=== PATIENT | female | born 1995 | race Hispanic/Latino ===

== ENCOUNTER 2016-11-23 03:16 | Observation (INO) | payer OTHER ==
[2016-11-23 03:24] VITALS: BMI 20.7
[2016-11-23] MEDS ORDERED: Sodium Chloride 0.9% 1,000 ML IV STA (03:32)
--- NOTE | 2016-11-23 03:43 | ED PDOC ---
Arrival/HPI - General Chief Complaint: Abdominal Pain Time Seen by Provider: 11/23/16 03:21 Historian: Patient - History of Present Illness Narrative History of Present Illness (Text): 11/23/16 03:42 Radha Cyr is a 20 year old female, whose past medical history includes seizure disorder, depression, and multiple UTIs, who presents to the emergency department complaining of lower abdominal pain radiating to right groin tonight. Patient reports associated nausea and vomiting. Patient states her last normal menstrual period was 1 week ago. Patient notes a few days prior she had malodorous urine and urinary frequency, for which she took [id number] UTI medication. The patient denies any fever, chills, chest pain, shortness of breath, diarrhea, back pain, neck pain, headache, dizziness, or any other complaints. Time/Duration: Other (tonight) Symptom Onset: Gradual Symptom Course: Unchanged Activities at Onset: Rest, Light Context: Home Past Medical History - Provider Review Nursing Documentation Reviewed: Yes - Infectious Disease Hx of Infectious Diseases: None - Cardiac Hx Cardiac Disorders: No - Pulmonary Hx Respiratory Disorders: No - Neurological Hx Neurological Disorder: Yes Hx Seizures: Yes - HEENT Hx HEENT Disorder: No - Renal Hx Renal Disorder: No - Endocrine/Metabolic Hx Endocrine Disorders: No - Hematological/Oncological Hx Blood Disorders: No - Integumentary Hx Dermatological Disorder: No - Musculoskeletal/Rheumatological Hx Musculoskeletal Disorders: Yes Hx Back Pain: Yes Hx Falls: Yes - Gastrointestinal Hx Gastrointestinal Disorders: No - Genitourinary/Gynecological Hx Genitourinary Disorders: Yes Hx Urinary Tract Infection: Yes (multiple) - Psychiatric Hx Psychophysiologic Disorder: Yes Hx Anxiety: Yes Hx Depression: Yes Hx Substance Use: No - Surgical History Hx Tonsillectomy: Yes - Anesthesia Hx Anesthesia: Yes Hx Anesthesia Reactions: No Hx Malignant Hyperthermia: No Family/Social History - Physician Review Nursing Documentation Reviewed: Yes Family/Social History: No Known Family HX Smoking Status: Never Smoked Hx Alcohol Use: No Hx Substance Use: No Allergies/Home Meds Allergies/Adverse Reactions: Allergies bupropion HCl [From Wellbutrin] Allergy (Verified 05/31/16 20:47) .seizure Review of Systems - Physician Review All systems were reviewed & negative as marked: Yes - Review of Systems Constitutional: Normal. absent: Fevers Eyes: Normal ENT: Normal Respiratory: Normal. absent: SOB, Cough Cardiovascular: Normal. absent: Chest Pain Gastrointestinal: Abdominal Pain, Nausea, Vomiting. absent: Diarrhea Genitourinary Female: Dysuria, Frequency. absent: Hematuria, Urine Output Changes Musculoskeletal: Normal. absent: Back Pain, Neck Pain Skin: Normal. absent: Rash Neurological: Normal. absent: Headache, Dizziness Endocrine: Normal Hemo/Lymphatic: Normal Psychiatric: Normal Physical Exam Vital Signs Reviewed: Yes Vital Signs Temp Pulse Resp BP Pulse Ox 11/23/16 03:27 98.2 F 82 16 124/89 99 Temperature: Afebrile Blood Pressure: Normal Pulse: Regular Respiratory Rate: Normal Appearance: Positive for: Well-Appearing, Non-Toxic, Comfortable Pain Distress: None Mental Status: Positive for: Alert and Oriented X 3 - Systems Exam Head: Present: Atraumatic, Normocephalic Pupils: Present: PERRL Extroacular Muscles: Present: EOMI Conjunctiva: Present: Normal Mouth: Present: Moist Mucous Membranes Neck: Present: Normal Range of Motion Respiratory/Chest: Present: Clear to Auscultation, Good Air Exchange. No: Respiratory Distress, Accessory Muscle Use Cardiovascular: Present: Regular Rate and Rhythm, Normal S1, S2. No: Murmurs Abdomen: Present: Normal Bowel Sounds. No: Tenderness, Distention, Peritoneal Signs Back: Present: Normal Inspection Upper Extremity: Present: Normal Inspection. No: Cyanosis, Edema Lower Extremity: Present: Normal Inspection. No: Edema Neurological: Present: GCS=15, CN II-XII Intact, Speech Normal Skin: Present: Warm, Dry, Normal Color. No: Rashes Psychiatric: Present: Alert, Oriented x 3, Normal Insight, Normal Concentration Medical Decision Making ED Course and Treatment: 11/23/16 03:42 Impression: 20 year old female complaining of lower abdominal pain, nausea, and vomiting tonight. Differential Diagnosis included but are not limited to: appendicitis vs. gastritis vs. UTI Plan: -- Labs, lipase -- Urinalysis -- IV fluids -- Reassess and disposition Prior Visits: Notes and results from previous visits were reviewed. Progress Notes: 11/23/16 04:15 Reviewed labs, WBC: 19.1. CT Abdomen and Pelvis ordered. 11/23/16 05:56 Reviewed radiology, CT Abdomen and Pelvis shows: Appendicitis as above. No perforation or abscess. Appendix is retrocecal. There is right ovarian cyst. Remainder as above. Paged surgeon correction worker. Vidya Bates ordered. 11/23/16 06:[address] Cazares, surgeon, who is aware and agrees with plan. Requests pt go to hospitalist service and he be placed on consult. Paged surgical nurse correction worker. 11/23/16 06:[address] Charles, surgical nurse, who is aware and agrees with plan. 11/23/16 06:21 Case discussed with house physician, who is aware and accepts pt in to hospitalist service. Pt will be admitted to [facility] for appendicitis. - Lab Interpretations Lab Results: 11/23/16 03:39 11/23/16 03:39 Lab Results 11/23/16 03:39: Sodium 140, Potassium 4.3, Chloride 101, Carbon Dioxide 27, Anion Gap 16, BUN 16, Creatinine 0.8, Est GFR ( Amer) > 60, Est GFR (Non- Af Amer) > 60, Random Glucose 84, Calcium 9.6, Total Bilirubin 0.7, AST 39, ALT 31, Alkaline Phosphatase 35 L, Total Protein 7.9, Albumin 4.4, Globulin 3.4, Albumin/Globulin Ratio 1.3, Lipase 94 11/23/16 03:39: Urine Color Yellow, Urine Appearance Clear, Urine pH 6.0, Ur Specific [place] 1.025, Urine Protein Negative, Urine Glucose (UA) Negative, Urine Ketones Negative, Urine Blood Negative, Urine Nitrate Negative, Urine Bilirubin Negative, Urine Urobilinogen 0.2, Ur Leukocyte Esterase Negative, Urine HCG, Qual Negative 11/23/16 03:39: WBC 19.1 H D, RBC 3.98, Hgb 11.8 L, Hct 34.6 L, MCV 86.9, MCH 29.6, MCHC 34.1, RDW 12.7, Plt Count 296, MPV 10.4 I have reviewed the lab results: Yes - RAD Interpretation Narrative RAD Interpretations (Text): CT Abdomen and Pelvis shows: The appendix is well visualized and is enlarged, measuring 9 mm, upper limits normal 6 mm. There is wall thickening and periappendiceal stranding. There is a small appendicolith. There is no pneumoperitoneum or abscess. There is no bowel obstruction. No acute solid organ pathology. There is a 32 x 20 mm right adnexal cyst, likely representing a functional ovarian cyst IMPRESSION: Appendicitis as above. No perforation or abscess. Appendix is retrocecal. There is right ovarian cyst. Remainder as above. Radiology Orders: 11/23/16 04:17 ABD & PELVIS IV CONTRAST ONLY [CT] Stat Solar Resource Assessor: Radiologist - Medication Orders Current Medication Orders: Metronidazole (Flagyl) 500 mg in 100 mls @ 100 mls/hr IVPB STAT STA PRN Reason: Protocol Stop: 11/23/16 07:00 Discontinued Medications Sodium Chloride (Sodium Chloride 0.9%) 1,000 mls @ 999 mls/hr IV .Q1H1M STA Stop: 11/23/16 04:32 Last Admin: 11/23/16 03:51 Dose: 999 mls/hr Ceftriaxone Sodium (Rocephin 1 Gram Ivpb) 1 gm in 100 mls @ 200 mls/hr IV ONCE STA PRN Reason: Protocol Stop: 11/23/16 06:29 Iohexol (Omnipaque 350 100 Ml) Confirm Administered Dose 350 mg .ROUTE .STK-MED ONE Stop: 11/23/16 04:57 Ketorolac Tromethamine (Toradol) 30 mg IVP ONCE ONE Stop: 11/23/16 04:18 Last Admin: 11/23/16 05:31 Dose: 30 mg - [place] Statement The provider has reviewed the documentation as recorded by the Isidoro Lopez Provider Attestation: All medical record entries made by the Isidoro were at my direction and personally dictated by me. I have reviewed the chart and agree that the record accurately reflects my personal performance of the history, physical exam, medical decision making, and the department course for this patient. I have also personally directed, reviewed, and agree with the discharge instructions and disposition. Disposition/Present on Arrival - Present on Arrival Any Indicators Present on Arrival: No History of DVT/PE: No History of Uncontrolled Diabetes: No Urinary Catheter: No History of Decub. Ulcer: No History Surgical Site Infection Following: None - Disposition Have Diagnosis and Disposition been Completed?: Yes Diagnosis: Appendicitis Disposition: HOSPITALIZED Disposition Time: 06:29 Patient Plan: Admission Patient Problems: Current Active Problems Problem Status Onset Appendicitis Acute Condition: STABLE
[2016-11-23 04:03] LABS: HEMATOCRIT 34.6 % (36.0-48.0); MEAN CELL VOLUME 86.9 fL (80.0-105.0); MEAN CORPUSCULAR HEMOGLOBIN 29.6 pg (25.0-35.0); MEAN CORPUSCULAR HGB CONC 34.1 g/dl (31.0-37.0); MEAN PLATELET VOLUME 10.4 fl (7.0-11.0); RED CELL DISTRIBUTION WIDTH 12.7 % (11.5-14.5); URINE BILIRUBIN NEGATIVE (NEGATIVE); URINE BLOOD NEGATIVE (NEGATIVE); URINE GLUCOSE (UA) NEGATIVE (NEGATIVE); URINE KETONE NEGATIVE (NEGATIVE); URINE LEUKOCYTE ESTERASE NEGATIVE Leu/uL (NEGATIVE); URINE PROTEIN NEGATIVE mg/dL (<30 mg/dL); URINE UROBILINOGEN 0.2 E.U./dL (<1 E.U./dL); WHITE BLOOD COUNT 19.1 10^3/ul (4.5-11.0)
[2016-11-23 04:05] LABS: ALB/GLOB RATIO 1.3 (1.1-1.8); ALKALINE PHOSPHATASE 35 U/L (38-133); ALT/SGPT 31 U/L (7-56); AST/SGOT 39 U/L (15-39); BILIRUBIN,TOTAL 0.7 mg/dL (0.2-1.3); BLOOD UREA NITROGEN 16 mg/dL (7-21); CALCIUM 9.6 mg/dL (8.4-10.5); CARBON DIOXIDE 27 mmol/L (21-33); CHLORIDE 101 mmol/L (98-107); GFR AFRICAN-AMERICAN > 60; GLUCOSE,RANDOM 84 mg/dL (70-110); LIPASE 94 U/L (23-300); POTASSIUM 4.3 mmol/L (3.6-5.0); SODIUM 140 mmol/L (132-148); TOTAL PROTEIN 7.9 g/dL (5.8-8.3)
[2016-11-23 04:13] LABS: URINE APPEARANCE CLEAR (CLEAR); URINE COLOR YELLOW (YELLOW)
[2016-11-23] MEDS ORDERED: Iohexol 350 MG/100 ML VIAL ONE (04:56)
[2016-11-23] MEDS ORDERED: cefTRIAXone 1 gm 1 GM/100 ML BAG IV STA (06:00)
[2016-11-23] MEDS ORDERED: metroNIDAZOLE IV 500 mg/100 ml 500 MG/100 ML BAG IVPB STA (06:01)
[2016-11-23] MEDS ORDERED: HYDROmorphone 0.5 mg/0.5 ml ISec IVP PRN (06:36)
--- NOTE | 2016-11-23 06:40 | CP.PCM.CON ---
<Lino Macedo - Last Filed: 11/23/16 06:43> History of Present Illness - History of Present Illness History of Present Illness: General Surgery: Dr Louise Pt is a 20F with PMH of poorly controlled seizure disorder, on Keppra 750mg BID , last known seizure in . Pt presents with suprapubic/RLQ pain which began at 10PM last night shortly after dinner. Pt reports the pain was 8/10 and consistent, located in the RLQ. PT initially felt it was just gas pains/cramping until about 11PM when she began to have multiple episodes of emesis. After several hours she decided to present to ED because the pain would not subside. She has associated N/V, subjective fevers, and constipation. Denies ever having symptoms like this before. Denies diarrhea, dysuria, abnormal menstrual bleeding, headache, sob or chest pain. CT scan confirms dilated retro-cecal appendix with appendicolith Has not yet had seizure meds today. PMH: as above PSH: tonsillectomy Review of Systems - Review of Systems All systems: reviewed and no additional remarkable complaints except (as per hpi ) Past Patient History - Infectious Disease Hx of Infectious Diseases: None - Past Social History Smoking Status: Never Smoked - CARDIAC Hx Cardiac Disorders: No - PULMONARY Hx Respiratory Disorders: No - NEUROLOGICAL Hx Neurological Disorder: Yes Hx Seizures: Yes - HEENT Hx HEENT Problems: No - RENAL Hx Chronic Kidney Disease: No - ENDOCRINE/METABOLIC Hx Endocrine Disorders: No - HEMATOLOGICAL/ONCOLOGICAL Hx Blood Disorders: No - INTEGUMENTARY Hx Dermatological Problems: No - MUSCULOSKELETAL/RHEUMATOLOGICAL Hx Musculoskeletal Disorders: Yes Hx Back Pain: Yes Hx Falls: Yes - GASTROINTESTINAL Hx Gastrointestinal Disorders: No - GENITOURINARY/GYNECOLOGICAL Hx Genitourinary Disorders: Yes Hx Urinary Tract Infection: Yes (multiple) - PSYCHIATRIC Hx Psychophysiologic Disorder: Yes Hx Anxiety: Yes Hx Depression: Yes Hx Substance Use: No - SURGICAL HISTORY Hx Tonsillectomy: Yes - ANESTHESIA Hx Anesthesia: Yes Hx Anesthesia Reactions: No Hx Malignant Hyperthermia: No Meds Allergies/Adverse Reactions: Allergies Allergy/AdvReac Type Severity Reaction Status Date / Time bupropion HCl Allergy .seizure Verified 05/31/16 20:47 [From Wellbutrin] - Medications Medications: Current Medications Hydromorphone HCl (Dilaudid) 0.5 mg IVP Q4H PRN PRN Reason: Pain, Mild (1-3) Metronidazole (Flagyl) 500 mg in 100 mls @ 100 mls/hr IVPB STAT STA PRN Reason: Protocol Stop: 11/23/16 07:00 Metronidazole (Flagyl) 500 mg in 100 mls @ 100 mls/hr IVPB Q8 COLT PRN Reason: Protocol Ceftriaxone Sodium (Rocephin 1 Gram Ivpb) 1 gm in 100 mls @ 100 mls/hr IVPB DAILY COLT PRN Reason: Protocol Sodium Chloride (Sodium Chloride 0.9%) 1,000 mls @ 100 mls/hr IV .Q10H COLT Levetiracetam (Keppra) 750 mg PO BID COLT Physical Exam - Constitutional Appears: Non-toxic, No Acute Distress - Head Exam Head Exam: NORMOCEPHALIC - Eye Exam Eye Exam: absent: Scleral icterus - ENT Exam ENT Exam: Mucous Membranes Dry - Respiratory Exam Respiratory Exam: absent: Accessory Muscle Use, Respiratory Distress - Cardiovascular Exam Cardiovascular Exam: REGULAR RHYTHM. absent: Tachycardia - GI/Abdominal Exam GI & Abdominal Exam: Soft, Tenderness (suprapubic and RLQ). absent: Distended, Firm, Guarding, Hernia, Mass, Rebound, Rigid Additional comments: - rebound -psoas -rovsings of note pt had pain medication administered right before physical exam - Extremities Exam Extremities exam: Negative for: pedal edema - Neurological Exam Neurological exam: Alert, Oriented x3 - Psychiatric Exam Psychiatric exam: Normal Affect, Normal Mood - Skin Skin Exam: Normal Color Results - Vital Signs Recent Vital Signs: Last Vital Signs Temp 98.2 F 11/23/16 03:27 Pulse 86 11/23/16 06:37 Resp 18 11/23/16 06:37 BP 106/67 11/23/16 06:37 Pulse Ox 100 11/23/16 06:37 - Labs Result Diagrams: 11/23/16 03:39 11/23/16 03:39 Labs: Laboratory Results - last 24 hr 11/23/16 11/23/16 11/23/16 03:39 03:39 03:39 WBC 19.1 H D RBC 3.98 Hgb 11.8 L Hct 34.6 L MCV 86.9 MCH 29.6 MCHC 34.1 RDW 12.7 Plt Count 296 MPV 10.4 Sodium 140 Potassium 4.3 Chloride 101 Carbon Dioxide 27 Anion Gap 16 BUN 16 Creatinine 0.8 Est GFR ( Amer) > 60 Est GFR (Non-Af Amer) > 60 Random Glucose 84 Calcium 9.6 Total Bilirubin 0.7 AST 39 ALT 31 Alkaline Phosphatase 35 L Total Protein 7.9 Albumin 4.4 Globulin 3.4 Albumin/Globulin Ratio 1.3 Lipase 94 Urine Color Yellow Urine Appearance Clear Urine pH 6.0 Ur Specific [place] 1.025 Urine Protein Negative Urine Glucose (UA) Negative Urine Ketones Negative Urine Blood Negative Urine Nitrate Negative Urine Bilirubin Negative Urine Urobilinogen 0.2 Ur Leukocyte Esterase Negative Urine HCG, Qual Negative Assessment & Plan - Assessment and Plan (Free Text) Assessment: 20F with appendicitis Plan: NPO IV Fluids abx as ordered OR this morning for laparoscopic appendectomy d/w Dr Debora Macedo DO, PGY2 - Date & Time Date: 11/23/16 Time: 06:49 <Ramírez Cazares - Last Filed: 11/27/16 12:57> Results - Vital Signs Recent Vital Signs: Last Vital Signs Temp 99.0 F 11/24/16 06:28 Pulse 60 11/24/16 06:28 Resp 18 11/24/16 06:28 BP 113/67 11/24/16 06:28 Pulse Ox 99 11/24/16 06:28 - Labs Result Diagrams: 11/24/16 07:00 11/24/16 07:00 Assessment & Plan - Assessment and Plan (Free Text) Assessment: Patient was seen and examined by me. I agree with assessment and plan as per resident's note.
[2016-11-23] MEDS ORDERED: Sodium Chloride 0.9% 1,000 ML IV SCH (06:45)
--- NOTE | 2016-11-23 07:24 | CT ---
PROCEDURE: CT Abdomen and Pelvis with contrast HISTORY: abdominal pain COMPARISON: None. TECHNIQUE: Contrast dose: 100 cc of Omnipaque 300 Radiation dose: Total exam DLP = 227 mGy-cm. This CT exam was performed using one or more of the following dose reduction techniques: Automated exposure control, adjustment of the mA and/or kV according to patient size, and/or use of iterative reconstruction technique. FINDINGS: LOWER THORAX: Unremarkable. LIVER: Unremarkable. No gross lesion or ductal dilatation. GALLBLADDER AND BILE DUCTS: Unremarkable. PANCREAS: Unremarkable. No gross lesion or ductal dilatation. SPLEEN: Unremarkable. ADRENALS: Unremarkable. No mass. KIDNEYS AND URETERS: Unremarkable. No hydronephrosis. No solid mass. VASCULATURE: Unremarkable. No aortic aneurysm. BOWEL: Unremarkable. No obstruction. No gross mural thickening. APPENDIX: Normal appendix. PERITONEUM: Unremarkable. No free fluid. No free air. LYMPH NODES: Unremarkable. No enlarged lymph nodes. BLADDER: Unremarkable. REPRODUCTIVE: 2.8 centimeter right ovarian cyst. Minimal free fluid in cul-de-sac.. BONES: No acute fracture. OTHER FINDINGS: None. IMPRESSION: 2.8 centimeter right ovarian cyst. Minimal free fluid in cul-de-sac..
[2016-11-23] MEDS ORDERED: Propofol 10 mg/ml Inj (20 ML) ONE (07:57)
[2016-11-23] MEDS ORDERED: Midazolam 2 MG/2 ML VIAL ONE (07:57)
[2016-11-23] MEDS ORDERED: Rocuronium 10 mg/ml (5 ml) ONE (07:57)
[2016-11-23] MEDS ORDERED: Bupivacaine 0.5% Inj(30mL) ONE (08:12)
[2016-11-23] MEDS ORDERED: Morphine 2 mg/ml ISec IVP PRN (08:35)
[2016-11-23] MEDS ORDERED: Lactated Ringer's 1,000 ML IV SCH (08:35)
[2016-11-23] MEDS ORDERED: Glycopyrrolate 0.2 mg/ml (2ml vial) ONE (08:38)
[2016-11-23] MEDS ORDERED: Neostigmine Methylsulfate 3mg/3ml Syringe IV ONE (08:38)
--- NOTE | 2016-11-23 09:30 | PCM.SURG1 ---
Surgeon's Initial Post Op Note - Surgeon's Notes Surgeon: Dr. Cazares Business Integration Manager: Dr. Leos PGY1 Type of Anesthesia: General Endo Pre-Operative Diagnosis: appendicitis Operative Findings: see dictation Post-Operative Diagnosis: same Operation Performed: laparoscopic appendectomy Specimen/Specimens Removed: appendix Estimated Blood Loss: EBL {In ML}: 5 Post-Op Condition: Good Date of Surgery/Procedure: 11/23/16 Time of Surgery/Procedure: 07:45
[2016-11-23] MEDS ORDERED: Morphine 2 mg/ml ISec ONE (09:54)
--- NOTE | 2016-11-23 09:54 | CP.PCM.HP ---
History of Present Illness - History of Present Illness History of Present Illness: General Surgery: Dr Louise HPI: Pt is a 20F w/ PMHx of poorly controlled seizure disorder, on Keppra 750mg BID, last known seizure in . Pt presents w/ suprapubic/RLQ pain which began at 10PM last night shortly after dinner. Pt reports the pain was 8/10 and consistent, located in the RLQ. PT initially felt it was just gas pains/ cramping until about 11PM when she began to have multiple episodes of emesis. After several hours she decided to present to ED because the pain would not subside. She has associated N/V, subjective fevers, and constipation. Denies ever having symptoms like this before. Denies diarrhea, dysuria, abnormal menstrual bleeding, headache, sob or chest pain. CT scan confirms dilated retro-cecal appendix with appendicolith Has not yet had seizure meds today. PMH: as above PSH: tonsillectomy Present on Admission - Present on Admission Any Indicators Present on Admission: No Review of Systems - Review of Systems All systems: reviewed and no additional remarkable complaints except (see HPI) Past Patient History - Infectious Disease Hx of Infectious Diseases: None - Past Social History Smoking Status: Never Smoked - CARDIAC Hx Cardiac Disorders: No - PULMONARY Hx Respiratory Disorders: No - NEUROLOGICAL Hx Neurological Disorder: Yes Hx Seizures: Yes - HEENT Hx HEENT Problems: No - RENAL Hx Chronic Kidney Disease: No - ENDOCRINE/METABOLIC Hx Endocrine Disorders: No - HEMATOLOGICAL/ONCOLOGICAL Hx Blood Transfusions: No Hx Blood Transfusion Reaction: No - INTEGUMENTARY Hx Dermatological Problems: No - MUSCULOSKELETAL/RHEUMATOLOGICAL Hx Musculoskeletal Disorders: Yes Hx Back Pain: Yes Hx Falls: Yes - GASTROINTESTINAL Hx Gastrointestinal Disorders: No - GENITOURINARY/GYNECOLOGICAL Hx Genitourinary Disorders: Yes Hx Urinary Tract Infection: Yes (multiple) - PSYCHIATRIC Hx Psychophysiologic Disorder: Yes Hx Anxiety: Yes Hx Depression: Yes Hx Substance Use: No - SURGICAL HISTORY Hx Surgeries: Yes - ANESTHESIA Hx Anesthesia Reactions: No Hx Malignant Hyperthermia: No Meds Allergies/Adverse Reactions: Allergies Allergy/AdvReac Type Severity Reaction Status Date / Time bupropion HCl Allergy .seizure Verified 05/31/16 20:47 [From Wellbutrin] Physical Exam - Constitutional Appears: Non-toxic, No Acute Distress - Head Exam Head Exam: NORMAL INSPECTION - Eye Exam Eye Exam: Normal appearance - ENT Exam ENT Exam: Mucous Membranes Moist - Respiratory Exam Respiratory Exam: NORMAL BREATHING PATTERN. absent: Accessory Muscle Use, Respiratory Distress - Cardiovascular Exam Cardiovascular Exam: REGULAR RHYTHM. absent: Tachycardia - GI/Abdominal Exam GI & Abdominal Exam: Soft, Tenderness (suprapubic/RLQ). absent: Distended, Firm , Guarding, Hernia, Mass, Rebound, Rigid Additional comments: (-) Psoas, Rovsings sign of note pt had pain medication administered right before physical exam - Extremities Exam Extremities exam: Positive for: normal inspection. Negative for: pedal edema - Neurological Exam Neurological exam: Alert, Oriented x3 - Psychiatric Exam Psychiatric exam: Normal Affect, Normal Mood - Skin Skin Exam: Dry, Intact, Normal Color, Warm Results - Vital Signs Recent Vital Signs: Last Vital Signs Temp 98.4 F 11/23/16 09:20 Pulse 57 L 11/23/16 09:35 Resp 12 11/23/16 09:35 BP 97/61 L 11/23/16 09:35 Pulse Ox 100 11/23/16 09:35 - Labs Result Diagrams: 11/23/16 03:39 11/23/16 03:39 - Imaging and Cardiology CT scan - abdomen Status: Image reviewed by me, Report reviewed by me Assessment & Plan - Assessment and Plan (Free Text) Assessment: 20 y/o F w/ appendicitis - NPO - IV Fluids - abx as ordered - pain management - OR this morning for laparoscopic appendectomy - Discharge later this afternoon on Keflex if tolerating diet. Pt seen and discussed w/ Dr. Debora Leos DO PGY1
--- NOTE | 2016-11-23 10:18 | OP ---
PROCEDURE DATE: 11/23/2016 PREOPERATIVE DIAGNOSIS: Acute appendicitis. POSTOPERATIVE DIAGNOSIS: Acute appendicitis. PROCEDURE PERFORMED: Laparoscopic appendectomy. SURGEON: Dr. Cazares. SOA INTEGRATION ARCHITECT: Dr. Leos. ANESTHESIOLOGIST: Dr. Gramajo. ANESTHESIA: General endotracheal anesthesia. ESTIMATED BLOOD LOSS: Minimal. SPECIMEN: Acutely inflamed appendix. INDICATION: The patient is a 20-year-old female who came to the Emergency Room with complaints of ac boo onset abdominal pain starting in the periumbilical area and radiating to the right lower quadrant . The patient had a CT scan revealing presence of acute appendicitis and was scheduled for appendect jeremy. DESCRIPTION OF PROCEDURE: The patient was brought to the operating room and placed on the operating table in supine position. The patient was connected to EKG, blood pressure and pulse oximeter monito rs. The patient then underwent general endotracheal anesthesia and was prepped and draped in usual s terile fashion. Using 2 towel clips, the anterior abdominal wall was elevated and a small incision was made superior to the umbilicus. Once hemoperitoneum was obtained using the Veress needle, the 12 mm scope was plac ed via that incision, and a careful evaluation of the abdominal cavity revealed the presence of diste nded colon quite redundant going down into the pelvis. The cecum was slowly elevated. The patient w as put into the Trendelenburg position exposing the thickened appendix. A second 10 mm trocar was pl aced in the suprapubic position, and careful dissection begun by first cauterizing the mesentery of t hat appendix down to its base. Once the base of the appendix was exposed, an Endo-ANMOL stapler was pl aced via the periumbilical port and the base of the appendix was stapled and amputated. The appendix was then placed in an EndoCatch bag and removed through the periumbilical incision. The right lower quadrant was copiously irrigated and irrigant fluid was suctioned out. There was excellent hemostas is. The right ovary was visualized and noted to be normal with a small hemorrhagic cyst on one side of it. Otherwise, there were no other abnormalities noted in the abdominal cavity. Both ports were checked. There was no evidence of any bleeding around the port. Both ports were then removed after pneumoperitoneum was released. Once trocars were removed, the wounds were closed using 0 Vicryl for the fascia, 3-0 Vicryl for subcutaneous tissue and 4-0 Monocryl for skin. A sterile Dermabond dressi ng was applied to all the wounds. The patient tolerated the procedure well and there were no complic ations. The patient was awakened and transferred to recovery room for further observation. Ramírez Cazares MD cc: [id number] TT: 11/23/2016 10:17:28 mn
[2016-11-23] MEDS: cefTRIAXone 1 gm 1 GM/100 ML BAG IVPB SCH (10:37)
[2016-11-23 11:30] VITALS: RESP 18
[2016-11-23] MEDS: metroNIDAZOLE IV 500 mg/100 ml 500 MG/100 ML BAG IVPB SCH ×2 (13:35→21:47)
[2016-11-23] MEDS: HYDROmorphone 0.5 mg/0.5 ml ISec IVP PRN ×2 (13:46→19:55)
[2016-11-23] MEDS: Oxycodone/Acetaminophen 5/325 mg Tab PO PRN ×2 (15:50→23:50)
[2016-11-23] MEDS: Sodium Chloride 0.9% 1,000 ML IV SCH (19:54)
[2016-11-24] MEDS: metroNIDAZOLE IV 500 mg/100 ml 500 MG/100 ML BAG IVPB SCH (05:26)
[2016-11-24] MEDS: Sodium Chloride 0.9% 1,000 ML IV SCH (05:28)
[2016-11-24] MEDS: HYDROmorphone 0.5 mg/0.5 ml ISec IVP PRN ×2 (05:56→10:22)
[2016-11-24 07:18] VITALS: BP 113/67; PULSE 60; TEMP 99; O2SAT 99
[2016-11-24 07:50] LABS: BLOOD UREA NITROGEN 9 mg/dL (7-21); CALCIUM 8.4 mg/dL (8.4-10.5); CARBON DIOXIDE 25 mmol/L (21-33); CHLORIDE 106 mmol/L (98-107); GFR AFRICAN-AMERICAN > 60; GLUCOSE,RANDOM 89 mg/dL (70-110); POTASSIUM 4.1 mmol/L (3.6-5.0); SODIUM 138 mmol/L (132-148)
[2016-11-24 07:53] LABS: HEMATOCRIT 29.5 % (36.0-48.0); MEAN CELL VOLUME 91.3 fL (80.0-105.0); MEAN CORPUSCULAR HEMOGLOBIN 28.8 pg (25.0-35.0); MEAN CORPUSCULAR HGB CONC 31.5 g/dl (31.0-37.0); MEAN PLATELET VOLUME 10.9 fl (7.0-11.0); RED CELL DISTRIBUTION WIDTH 12.8 % (11.5-14.5); WHITE BLOOD COUNT 7.9 10^3/ul (4.5-11.0)
[2016-11-24] MEDS: cefTRIAXone 1 gm 1 GM/100 ML BAG IVPB SCH (09:20)
--- NOTE | 2016-11-24 14:35 | CP.PCM.DIS ---
Provider - Provider Date of Admission: 11/23/16 06:26 Attending physician: Ramírez Cazares MD Time Spent in preparation of Discharge (in minutes): 30 Hospital Course - Lab Results Lab Results: Micro Results 11/23/16 06:44 Blood Blood Culture - Preliminary NO GROWTH AFTER 24 HOURS Most Recent Lab Values WBC 7.9 10^3/ul (4.5-11.0) D 11/24/16 07:00 RBC 3.23 10^6/uL (3.5-6.1) L 11/24/16 07:00 Hgb 9.3 gm/dL (12.0-16.0) L 11/24/16 07:00 Hct 29.5 % (36.0-48.0) L 11/24/16 07:00 MCV 91.3 fL (80.0-105.0) 11/24/16 07:00 MCH 28.8 pg (25.0-35.0) 11/24/16 07:00 MCHC 31.5 g/dl (31.0-37.0) 11/24/16 07:00 RDW 12.8 % (11.5-14.5) 11/24/16 07:00 Plt Count 224 10^3/uL (120.0-450.0) 11/24/16 07:00 MPV 10.9 fl (7.0-11.0) 11/24/16 07:00 Sodium 138 mmol/L (132-148) 11/24/16 07:00 Potassium 4.1 mmol/L (3.6-5.0) 11/24/16 07:00 Chloride 106 mmol/L (98-107) 11/24/16 07:00 Carbon Dioxide 25 mmol/L (21-33) 11/24/16 07:00 Anion Gap 11 (10-20) 11/24/16 07:00 BUN 9 mg/dL (7-21) 11/24/16 07:00 Creatinine 0.9 mg/dL (0.5-1.4) 11/24/16 07:00 Est GFR ( Amer) > 60 11/24/16 07:00 Est GFR (Non-Af Amer) > 60 11/24/16 07:00 Random Glucose 89 mg/dL (70-110) 11/24/16 07:00 Calcium 8.4 mg/dL (8.4-10.5) 11/24/16 07:00 Total Bilirubin 0.7 mg/dL (0.2-1.3) 11/23/16 03:39 AST 39 U/L (15-39) 11/23/16 03:39 ALT 31 U/L (7-56) 11/23/16 03:39 Alkaline Phosphatase 35 U/L (38-133) L 11/23/16 03:39 Total Protein 7.9 g/dL (5.8-8.3) 11/23/16 03:39 Albumin 4.4 g/dL (3.0-4.8) 11/23/16 03:39 Globulin 3.4 gm/dL 11/23/16 03:39 Albumin/Globulin Ratio 1.3 (1.1-1.8) 11/23/16 03:39 Lipase 94 U/L (23-300) 11/23/16 03:39 Urine Color Yellow (YELLOW) 11/23/16 03:39 Urine Appearance Clear (CLEAR) 11/23/16 03:39 Urine pH 6.0 (4.7-8.0) 11/23/16 03:39 Ur Specific [place] 1.025 (1.005-1.035) 11/23/16 03:39 Urine Protein Negative mg/dL (<30 mg/dL) 11/23/16 03:39 Urine Glucose (UA) Negative mg/dL (NEGATIVE) 11/23/16 03:39 Urine Ketones Negative mg/dL (NEGATIVE) 11/23/16 03:39 Urine Blood Negative (NEGATIVE) 11/23/16 03:39 Urine Nitrate Negative (NEGATIVE) 11/23/16 03:39 Urine Bilirubin Negative (NEGATIVE) 11/23/16 03:39 Urine Urobilinogen 0.2 E.U./dL (<1 E.U./dL) 11/23/16 03:39 Ur Leukocyte Esterase Negative [place]/uL (NEGATIVE) 11/23/16 03:39 Urine HCG, Qual Negative (NEGATIVE) 11/23/16 03:39 - Hospital Course Hospital Course: Patient is a 21yo female with history of seizure disorder that presented c/o suprapubic and RLQ abdominal pain that started the evening prior to presenting to the emergency room. She reported that the pain started shortly after dinner and was an 8/10 in severity and constant. She reported that her abdominal pain was associated with nonbloody emesis and decided to the come to the hospital because the pain would not subside. She reported nausea, vomiting, subjective fevers and constipation. Denied diarrhea, dysuria, abnormal menstrual bleeding , headache, sob or chest pain. Labs in the ED, were notable for leukocytosis ( 19.1). CT scan reported dilated retro-cecal appendix with appendicolith. Patient was subsequently taken to OR for laproscopic appendectomy. She tolerated the procedure well and was able to tolerate diet and ambulate. She was subsequently discharged with instructions to follow up with Dr. Cazares in 1-2 weeks. Discharge Exam - Head Exam Head Exam: NORMAL INSPECTION - Eye Exam Eye Exam: EOMI, PERRL - ENT Exam ENT Exam: Mucous Membranes Moist - Neck Exam Neck exam: Normal Inspection - Respiratory Exam Respiratory Exam: Clear to PA & Lateral. absent: Rales, Rhonchi, Wheezes - Cardiovascular Exam Cardiovascular Exam: RRR, +S1, +S2. absent: Gallop, JVD, Rubs - GI/Abdominal Exam GI & Abdominal Exam: Soft, Tenderness. absent: Distended, Guarding, Rebound, Rigid - Neurological Exam Neurological exam: Alert, Oriented x3 - Psychiatric Exam Psychiatric exam: Normal Affect, Normal Mood - Skin Skin Exam: Dry, Intact, Normal Color, Warm Discharge Plan - Discharge Medications Prescriptions: oxyCODONE/Acetaminophen [Percocet 5/325 mg Tab] 1 ea PO Q6H PRN #30 tab PRN Reason: Pain, Moderate (4-7) - Follow Up Plan Condition: STABLE Disposition: HOME/ ROUTINE Instructions: Appendicitis (DC), Appendicitis (GEN), Laparoscopic Appendectomy (DC) Additional Instructions: - FOLLOW UP WITH DR. YOUNG IN 2 WEEKS - NO HEAVY LIFTING UNTIL CLEARED BY DR. YOUNG. - REPORT TO ER IF DEVELOPING FEVER, CHILLS, SEVERE PAIN, OR NEW ONSET OF SYMPTOMS. Referrals: Ramírez Cazares MD [Staff Provider] -
== END 2016-11-24 14:48 | disposition home or self-care (01) ==
LOC: ED 03:16 → INTOOBSV 06:26 → ERH 06:26 → 3RNO 10:27
PROVIDERS: ADMIT Internal Medicine; ATTEND General Practice
DX: K35.80 Unspecified acute appendicitis (principal); G40.909 Epilepsy, unspecified, not intractable, without status epilepticus; R35.0 Frequency of micturition; N83.201 Unspecified ovarian cyst, right side; K59.00 Constipation, unspecified; Z87.440 Personal history of urinary (tract) infections
CPT/HCPCS: 36415; 44970; 74177; 80048; 80053; 81003; 83690; 84703; 85027; 87040; 88304; 96361; 96365; 96366; 96367; 96375; 96376; 99285; G0378; J0696; J1170; J1885; J2001; J2250; J2270; J2704; J2710; J3010; J7040; Q9967

== ENCOUNTER 2016-11-25 01:07 | Emergency (ER) | payer OTHER ==
[2016-11-25 01:08] VITALS: BMI 20.7
[2016-11-25 01:16] VITALS: RESP 18; TEMP 99; O2SAT 99
--- NOTE | 2016-11-25 01:51 | ED PDOC ---
Arrival/HPI - General Chief Complaint: Syncope Time Seen by Provider: 11/25/16 01:23 Historian: Patient, Spouse - History of Present Illness Narrative History of Present Illness (Text): 11/25/16 01:52 Radha Cyr is a 21 year old female who presents to the emergency department s/p recent appendectomy, complaining of abdominal pain since surgery. Patient states she has not had a bowel movement or passed gas since the surgery. Patient took Percocet for pain for minimal relief. Also states she feels dehydrated. According to , patient experienced an episode of transient "blank stare." She has a history of partial seizure, for which she takes Keppra. Denies fever, chills, headache, dizziness, nausea, vomiting, diarrhea, urinary symptoms, or any other complaints at this time. Time/Duration: Other (since yesterday ) Symptom Onset: Gradual Symptom Course: Unchanged Severity Level: Mild Activities at Onset: Light Past Medical History - Provider Review Nursing Documentation Reviewed: Yes - Infectious Disease Hx of Infectious Diseases: None - Cardiac Hx Cardiac Disorders: No - Pulmonary Hx Respiratory Disorders: No - Neurological Hx Neurological Disorder: Yes Hx Seizures: Yes - HEENT Hx HEENT Disorder: No - Renal Hx Renal Disorder: No - Endocrine/Metabolic Hx Endocrine Disorders: No - Hematological/Oncological Hx Blood Disorders: No - Integumentary Hx Dermatological Disorder: No - Musculoskeletal/Rheumatological Hx Falls: Yes - Gastrointestinal Hx Gastrointestinal Disorders: No - Genitourinary/Gynecological Hx Genitourinary Disorders: Yes Hx Urinary Tract Infection: Yes (multiple) - Psychiatric Hx Psychophysiologic Disorder: Yes Hx Anxiety: Yes Hx Depression: Yes Hx Substance Use: No - Surgical History Hx Appendectomy: Yes - Anesthesia Hx Anesthesia: Yes Hx Anesthesia Reactions: No Hx Malignant Hyperthermia: No Family/Social History - Physician Review Nursing Documentation Reviewed: Yes Family/Social History: No Known Family HX Smoking Status: Never Smoked Hx Alcohol Use: No Hx Substance Use: No Allergies/Home Meds Allergies/Adverse Reactions: Allergies bupropion HCl [From Wellbutrin] Allergy (Verified 05/31/16 20:47) .seizure Review of Systems - Physician Review All systems were reviewed & negative as marked: Yes - Review of Systems Constitutional: Normal. absent: Fatigue, Fevers Respiratory: Normal. absent: SOB, Cough, Sputum Cardiovascular: Normal. absent: Chest Pain, Palpitations Gastrointestinal: Abdominal Pain. absent: Diarrhea, Vomiting Genitourinary Female: Normal Neurological: Other (episode of "blank Stare" ). absent: Headache, Dizziness Psychiatric: Normal Physical Exam Vital Signs Reviewed: Yes Vital Signs Temp Pulse Resp BP Pulse Ox 11/25/16 07:08 72 18 122/68 99 11/25/16 05:08 72 18 124/72 100 11/25/16 01:15 99.0 F 78 18 138/74 99 Temperature: Afebrile Blood Pressure: Normal Pulse: Regular Respiratory Rate: Normal Appearance: Positive for: Well-Appearing, Non-Toxic, Comfortable Pain Distress: None Mental Status: Positive for: Alert and Oriented X 3 - Systems Exam Head: Present: Atraumatic, Normocephalic Pupils: Present: PERRL Conjunctiva: Present: Normal Mouth: Present: Moist Mucous Membranes Respiratory/Chest: Present: Clear to Auscultation, Good Air Exchange. No: Respiratory Distress, Accessory Muscle Use Cardiovascular: Present: Regular Rate and Rhythm, Normal S1, S2. No: Murmurs Abdomen: Present: Tenderness (lower abdominal), Normal Bowel Sounds, Other (no signs of erythema at laproscopic sites and umbilicus ). No: Distention, Peritoneal Signs, Rebound, Guarding Upper Extremity: Present: Normal Inspection. No: Cyanosis, Edema Lower Extremity: Present: Normal Inspection. No: Edema Neurological: Present: GCS=15, CN II-XII Intact, Speech Normal, Motor Func Grossly Intact, Normal Sensory Function Skin: Present: Warm, Dry, Normal Color. No: Rashes Psychiatric: Present: Alert, Oriented x 3, Normal Insight, Normal Concentration Medical Decision Making ED Course and Treatment: 11/25/16 02:01 Impression: A 21 year old female who presents to the emergency department complaining of diffuse abdominal pain s/p recent appendectomy. Patient also had a transient episode of "blank stare". Plan: -- Labs -- IV fluids -- Toradol -- Urinalysis -- Reassess and disposition Progress Notes: 11/25/16 05:54 CT abdomen pelvis results reviewed: IMPRESSION: 1. Small amount of free fluid in the abdomen and pelvis. 2. Moderate fecal retention right colon consistent with constipation. 3. Appendectomy 11/25/16 07:02 Pt. was evaluated by surgical elastic knitter Dr.Knox. Case was discussed with .Recommends pt. be given MOM/mineral oil.Will d/c on NSAID in lieu of Percocet meds.Pt. to follow up with in his office.Pt. currently resting comfortably . - Lab Interpretations Lab Results: 11/25/16 02:06 11/25/16 02:06 Lab Results 11/25/16 04:30: Urine Color Yellow, Urine Appearance Clear, Urine pH 6.0, Ur Specific [place] 1.010, Urine Protein Negative, Urine Glucose (UA) Negative, Urine Ketones Negative, Urine Blood Negative, Urine Nitrate Negative, Urine Bilirubin Negative, Urine Urobilinogen 0.2, Ur Leukocyte Esterase Negative 11/25/16 02:06: WBC 10.0 D, RBC 3.78, Hgb 10.9 L, Hct 33.2 L, MCV 87.8, MCH 28.8, MCHC 32.8, RDW 12.7, Plt Count 276, MPV 10.7 11/25/16 02:06: Sodium 140, Potassium 3.8, Chloride 103, Carbon Dioxide 26, Anion Gap 15, BUN 5 L, Creatinine 0.9, Est GFR ( Amer) > 60, Est GFR (Non -Af Amer) > 60, Random Glucose 94, Calcium 9.1, Total Bilirubin 0.8, AST 32, ALT 34, Alkaline Phosphatase 41, Total Protein 7.4, Albumin 4.1, Globulin 3.3, Albumin/Globulin Ratio 1.2 I have reviewed the lab results: Yes - RAD Interpretation Narrative RAD Interpretations (Text): EXAM: CT Abdomen and Pelvis With Intravenous Contrast FINDINGS: Lower thorax: Small right pleural effusion and probable very small left pleural effusion. ABDOMEN: Liver: Unremarkable. No mass. Gallbladder and bile ducts: Unremarkable. No calcified stones. No ductal dilation. Pancreas: Unremarkable. No mass. No ductal dilation. Spleen: Unremarkable. No splenomegaly. Adrenals: Unremarkable. No mass. Kidneys and ureters: Unremarkable. No solid mass. No hydronephrosis. Stomach and bowel: Moderate fecal retention right colon consistent with constipation. Appendix: Appendectomy. PELVIS: Bladder: Unremarkable. No mass. Reproductive: Simple right ovarian cyst or follicle. ABDOMEN and PELVIS: Intraperitoneal space: Small amount of free fluid in the abdomen and pelvis. Small amount of free air in the abdomen consistent with recent surgery. Bones/joints: No acute fracture. No dislocation. Soft tissues: Unremarkable. Vasculature: Unremarkable. No abdominal aortic aneurysm. Lymph nodes: Unremarkable. No enlarged lymph nodes. IMPRESSION: 1. Small amount of free fluid in the abdomen and pelvis. 2. Moderate fecal retention right colon consistent with constipation. 3. Appendectomy Radiology Orders: 11/25/16 02:51 ABD PELVIS PO & IV CONTRAST [CT] Stat Grease And Tallow Pumper: Radiologist - Medication Orders Current Medication Orders: Discontinued Medications Sodium Chloride (Sodium Chloride 0.9%) 1,000 mls @ 999 mls/hr IV .Q1H1M STA Stop: 11/25/16 02:52 Last Admin: 11/25/16 02:05 Dose: 999 mls/hr Iohexol (Omnipaque 240 (50 Ml)) Confirm Administered Dose 50 ml .ROUTE .STK-MED ONE Stop: 11/25/16 03:27 Iohexol (Omnipaque 350 100 Ml) Confirm Administered Dose 350 mg .ROUTE .STK-MED ONE Stop: 11/25/16 04:37 Ketorolac Tromethamine (Toradol) 30 mg IVP ONCE ONE Stop: 11/25/16 01:53 Last Admin: 11/25/16 02:06 Dose: 30 mg Magnesium Hydroxide (Milk Of Magnesia) 30 ml PO STAT STA Stop: 11/25/16 06:26 Last Admin: 11/25/16 06:45 Dose: 30 ml Mineral Oil (Mineral Oil Heavy) 10 ml PO STAT STA Stop: 11/25/16 06:27 Last Admin: 11/25/16 06:45 Dose: 10 ml Ondansetron HCl (Zofran Inj) Confirm Administered Dose 4 mg .ROUTE .STK-MED ONE Stop: 11/25/16 04:20 Last Admin: 11/25/16 04:21 Dose: 4 mg - [place] Statement The provider has reviewed the documentation as recorded by the Isidoro Gómez Provider Attestation: All medical record entries made by the Isidoro were at my direction and personally dictated by me. I have reviewed the chart and agree that the record accurately reflects my personal performance of the history, physical exam, medical decision making, and the department course for this patient. I have also personally directed, reviewed, and agree with the discharge instructions and disposition. Disposition/Present on Arrival - Present on Arrival Any Indicators Present on Arrival: No History of DVT/PE: No History of Uncontrolled Diabetes: No Urinary Catheter: No History of Decub. Ulcer: No History Surgical Site Infection Following: None - Disposition Have Diagnosis and Disposition been Completed?: Yes Diagnosis: History of abdominal surgery, Abdominal pain, Constipation Disposition: HOME/ ROUTINE Disposition Time: 07:07 Patient Plan: Discharge Condition: STABLE Additional Instructions: Stop Percocet meds /Take meds as prescribed/follow up with this week Prescriptions: Naproxen [Naprosyn] 500 mg PO BID PRN #14 tab PRN Reason: Pain Referrals: Teresita Chowdhury MD [Primary Care Provider] - Follow up with primary
[2016-11-25] MEDS ORDERED: Sodium Chloride 0.9% 1,000 ML IV STA (01:52)
[2016-11-25 02:23] LABS: HEMATOCRIT 33.2 % (36.0-48.0); MEAN CELL VOLUME 87.8 fL (80.0-105.0); MEAN CORPUSCULAR HEMOGLOBIN 28.8 pg (25.0-35.0); MEAN CORPUSCULAR HGB CONC 32.8 g/dl (31.0-37.0); MEAN PLATELET VOLUME 10.7 fl (7.0-11.0); RED CELL DISTRIBUTION WIDTH 12.7 % (11.5-14.5)
[2016-11-25 03:12] LABS: ALB/GLOB RATIO 1.2 (1.1-1.8); ALKALINE PHOSPHATASE 41 U/L (38-133); ALT/SGPT 34 U/L (7-56); AST/SGOT 32 U/L (15-39); BILIRUBIN,TOTAL 0.8 mg/dL (0.2-1.3); BLOOD UREA NITROGEN 5 mg/dL (7-21); CALCIUM 9.1 mg/dL (8.4-10.5); CARBON DIOXIDE 26 mmol/L (21-33); CHLORIDE 103 mmol/L (98-107); GFR AFRICAN-AMERICAN > 60; GLUCOSE,RANDOM 94 mg/dL (70-110); POTASSIUM 3.8 mmol/L (3.6-5.0); SODIUM 140 mmol/L (132-148); TOTAL PROTEIN 7.4 g/dL (5.8-8.3)
[2016-11-25] MEDS ORDERED: Iohexol 240 (50 ml) ONE (03:26)
[2016-11-25] MEDS ORDERED: Iohexol 350 MG/100 ML VIAL ONE (04:36)
[2016-11-25 05:22] LABS: URINE BILIRUBIN NEGATIVE (NEGATIVE); URINE BLOOD NEGATIVE (NEGATIVE); URINE GLUCOSE (UA) NEGATIVE (NEGATIVE); URINE KETONE NEGATIVE (NEGATIVE); URINE LEUKOCYTE ESTERASE NEGATIVE Leu/uL (NEGATIVE); URINE PROTEIN NEGATIVE mg/dL (<30 mg/dL); URINE UROBILINOGEN 0.2 E.U./dL (<1 E.U./dL)
[2016-11-25 05:31] LABS: URINE APPEARANCE CLEAR (CLEAR); URINE COLOR YELLOW (YELLOW)
[2016-11-25] MEDS ORDERED: Magnesium Hydroxide Susp 30 ml UD PO STA (06:25)
[2016-11-25] MEDS ORDERED: Mineral Oil (480 ml) PO STA (06:26)
[2016-11-25 07:20] VITALS: BP 122/68; PULSE 72
--- NOTE | 2016-11-25 07:30 | CP.PCM.CON ---
<Juanita Knox - Last Filed: 11/25/16 07:34> History of Present Illness - History of Present Illness History of Present Illness: General Surgery consult note for Dr. Cazares CC: abdominal pain POD#2 s/p laparoscopic appendectomy Pt is a 21 y/o F with PMH of ovarian cysts, seizures, depression, and acute appendicitis with laparoscopic appendectomy performed [address] Cazares without complications. Intra-operatively a hemorrhagic R ovarian cyst was seen. Patient recovered well, with her leukocytosis resolved and tolerating PO diet, and tolerating pain on PO Percocet and was discharged to home. Patient states that at home she experienced severe abdominal pain worst in the RLQ . PO Percocet made her fall asleep, but did not alleviate her pain for more than an hour. Patients reports that there was an episode of patient staring off into the distance and was not responsive to verbal or tactile stimuli for approximately 90seconds after taking the Percocet. Patient reports nausea, generalized weakness, and lower back pain since recent hospitalization but denies vomiting, fevers, chills, dysuria, hematuria, or any other symptoms. Patient states that pain was not improved with IV toradol in the ER. Patient states that she has not had a bowel movement or passed gas since the surgery Afebrile, VSS WBC: 10.0 up from 7.[address] abd/pelvis with PO contrast: Constipation in the RLQ unchanged from pre-op, small amount of free fluid. Review of Systems - Review of Systems All systems: reviewed and no additional remarkable complaints except - Constitutional Constitutional: As Per HPI, Weakness. absent: Fever - EENT Eyes: absent: Change in Vision - Cardiovascular Cardiovascular: absent: Chest Pain, Chest Pain at Rest, Dyspnea - Respiratory Respiratory: Pain on Inspiration (abdominal pain upon inspiration). absent: Cough, Dyspnea, Dyspnea on Exertion - Gastrointestinal Gastrointestinal: As Per HPI. absent: Vomiting - Genitourinary Genitourinary: absent: Difficulty Urinating, Dysuria, Hematuria - Reproductive: Female Reproductive:Female: Currently Menstual, Dysmenorrhea - Menstruation Menstruation: Currently Menstual - Musculoskeletal Musculoskeletal: Back Pain. absent: Numbness, Tingling - Neurological Neurological: absent: Numbness, Headaches, Syncope, Tingling, Vertigo - Psychiatric Psychiatric: Anxiety Past Patient History - Infectious Disease Hx of Infectious Diseases: None - Past Medical History & Family History Past Medical History?: Yes Past Family History: Reviewed and not pertinent - Past Social History Smoking Status: Never Smoked - CARDIAC Hx Cardiac Disorders: No - PULMONARY Hx Respiratory Disorders: No - NEUROLOGICAL Hx Neurological Disorder: Yes Hx Seizures: Yes - HEENT Hx HEENT Problems: No - RENAL Hx Chronic Kidney Disease: No - ENDOCRINE/METABOLIC Hx Endocrine Disorders: No - HEMATOLOGICAL/ONCOLOGICAL Hx Blood Disorders: No - INTEGUMENTARY Hx Dermatological Problems: No - MUSCULOSKELETAL/RHEUMATOLOGICAL Hx Falls: Yes - GASTROINTESTINAL Hx Gastrointestinal Disorders: No - GENITOURINARY/GYNECOLOGICAL Hx Genitourinary Disorders: Yes Hx Urinary Tract Infection: Yes (multiple) - PSYCHIATRIC Hx Psychophysiologic Disorder: Yes Hx Anxiety: Yes Hx Depression: Yes Hx Substance Use: No - SURGICAL HISTORY Hx Appendectomy: Yes - ANESTHESIA Hx Anesthesia: Yes Hx Anesthesia Reactions: No Hx Malignant Hyperthermia: No Meds Home Medications: Home Medication List Medication Instructions Recorded Confirmed Type Naproxen [Naprosyn] 500 mg PO BID PRN #14 tab 11/25/16 Rx Allergies/Adverse Reactions: Allergies Allergy/AdvReac Type Severity Reaction Status Date / Time bupropion HCl Allergy .seizure Verified 05/31/16 20:47 [From Wellbutrin] Physical Exam - Constitutional Appears: Well, Non-toxic, No Acute Distress - Head Exam Head Exam: ATRAUMATIC, NORMOCEPHALIC - Eye Exam Eye Exam: Normal appearance. absent: Conjunctival injection, Scleral icterus - ENT Exam ENT Exam: Mucous Membranes Moist - Respiratory Exam Respiratory Exam: NORMAL BREATHING PATTERN. absent: Accessory Muscle Use, Respiratory Distress - Cardiovascular Exam Cardiovascular Exam: RRR, +S1, +S2. absent: Systolic Murmur - GI/Abdominal Exam GI & Abdominal Exam: Distended (mild distention in RLQ and suprapubis), Soft, Tenderness (diffuse, greatest in RLQ and around surgical incisions). absent: Rebound, Rigid Additional comments: surgical incisions well approximated with dermabond, no erythema, drainage or active bleeding - Extremities Exam Extremities exam: Positive for: pedal pulses present. Negative for: calf tenderness, pedal edema - Back Exam Back exam: paraspinal tenderness. absent: CVA tenderness (L), CVA tenderness (R ), vertebral tenderness - Neurological Exam Neurological exam: Alert, Oriented x3 - Psychiatric Exam Psychiatric exam: Anxious, Normal Affect - Skin Skin Exam: Dry, Normal Color, Warm Results - Vital Signs Recent Vital Signs: Last Vital Signs Temp 99.0 F 11/25/16 01:15 Pulse 72 11/25/16 07:08 Resp 18 11/25/16 07:08 BP 122/68 11/25/16 07:08 Pulse Ox 99 11/25/16 07:08 - Labs Result Diagrams: 11/25/16 02:06 11/25/16 02:06 Labs: Laboratory Results - last 24 hr 11/25/16 11/25/16 11/25/16 02:06 02:06 04:30 WBC 10.0 D RBC 3.78 Hgb 10.9 L Hct 33.2 L MCV 87.8 MCH 28.8 MCHC 32.8 RDW 12.7 Plt Count 276 MPV 10.7 Sodium 140 Potassium 3.8 Chloride 103 Carbon Dioxide 26 Anion Gap 15 BUN 5 L Creatinine 0.9 Est GFR ( Amer) > 60 Est GFR (Non-Af Amer) > 60 Random Glucose 94 Calcium 9.1 Total Bilirubin 0.8 AST 32 ALT 34 Alkaline Phosphatase 41 Total Protein 7.4 Albumin 4.1 Globulin 3.3 Albumin/Globulin Ratio 1.2 Urine Color Yellow Urine Appearance Clear Urine pH 6.0 Ur Specific [place] 1.010 Urine Protein Negative Urine Glucose (UA) Negative Urine Ketones Negative Urine Blood Negative Urine Nitrate Negative Urine Bilirubin Negative Urine Urobilinogen 0.2 Ur Leukocyte Esterase Negative Assessment & Plan - Assessment and Plan (Free Text) Assessment: 21F POD#2 s/p lap appy with abdominal pain and nausea afebrile, VSS WBC wnl, H/H stable abdominal exam tender but otherwise benign CT abd/pelvis with PO contrast: R colon constipation, small amount of free fluid Pain and exam is appropriate for post op. Plan: D/C to home with addition of toradol for pain management and milk of magnesia and mineral oil for constipation. Follow up with Dr. Cazares in his office Call Dr. Cazares's office or return to the ER if symptoms worsen of if you have a fever >100.[address] Cazares, who agrees with above plan Juanita Knox, PGY1 <Ramírez Cazares - Last Filed: 11/27/16 13:00> Results - Vital Signs Recent Vital Signs: Last Vital Signs Temp 99.0 F 11/25/16 01:15 Pulse 72 11/25/16 07:08 Resp 18 11/25/16 07:08 BP 122/68 11/25/16 07:08 Pulse Ox 99 11/25/16 07:08 - Labs Result Diagrams: 11/25/16 02:06 11/25/16 02:06 Assessment & Plan - Assessment and Plan (Free Text) Assessment: Patient was seen and examined by me. I agree with assessment and plan as per resident's note.
--- NOTE | 2016-11-25 08:50 | CT ---
PROCEDURE: CT Abdomen and Pelvis with contrast HISTORY: diffuse abdominal pain s/p laparoscopic appendecto COMPARISON: 11/23/2016 TECHNIQUE: Contrast dose: 100 cc of Omni 350 Radiation dose: Total exam DLP = 316 mGy-cm. This CT exam was performed using one or more of the following dose reduction techniques: Automated exposure control, adjustment of the mA and/or kV according to patient size, and/or use of iterative reconstruction technique. FINDINGS: LOWER THORAX: Small amount of postoperative free air and fluid can be seen LIVER: Unremarkable. No gross lesion or ductal dilatation. GALLBLADDER AND BILE DUCTS: Unremarkable. PANCREAS: Unremarkable. No gross lesion or ductal dilatation. SPLEEN: Unremarkable. ADRENALS: Unremarkable. No mass. KIDNEYS AND URETERS: Unremarkable. No hydronephrosis. No solid mass. VASCULATURE: Unremarkable BOWEL: Unremarkable. No obstruction. No gross mural thickening. There is a moderate amount of fecal retention in the right side of the colon APPENDIX: Normal appendix. PERITONEUM: Unremarkable. No free fluid. No free air. LYMPH NODES: Unremarkable. No enlarged lymph nodes. BLADDER: Unremarkable. REPRODUCTIVE: There is a right-sided ovarian cyst BONES: No acute fracture. OTHER FINDINGS: The report concurs with the preliminary [facility] report IMPRESSION: Small amount of postoperative free fluid and intraperitoneal air. Recent appendectomy. No evidence of abscess
== END 2016-11-25 07:20 | disposition home or self-care (01) ==
LOC: ED 01:07
DX: K59.00 Constipation, unspecified (principal); R10.9 Unspecified abdominal pain; Z98.890 Other specified postprocedural states
CPT/HCPCS: 74177; 80053; 81003; 85027; 96361; 96374; 99282; J1885; J2405; J7040; Q9966; Q9967